=== PATIENT | female | born 2000 | race Two or more races ===

== ENCOUNTER 2020-09-24 13:27 | Emergency (ER) | payer OTHER ==
[~2020-09-24] VITALS: Ht 160 cm; Wt 56.7 kg
[2020-09-24 14:04] VITALS: BP 126/77
--- NOTE | 2020-09-24 14:23 | NUR ---
pt c/o severe pain after intercourse, states "burst of pain for 5 min". pt denies vomiting/cough/fever. pt took ibu before coming. cramping in low back. pt denies painful urination. hx: ovarian cyst (w/surgical removal). asthma. psh: tonsilectomy. pt states told her to not take nsaid after od. unsure of allergic rxn. LMP 08/19/20.
--- NOTE | 2020-09-24 14:45 | Emergency Room Report ---
History of Present Illness General Chief Complaint: Abdominal Pain Source: Patient Present Illness HPI 20-year-old female with PMHx of left ovarian cyst s/p laparoscopic surgery at [facility] in 2019 presents with left lower quadrant abdominal pain x onset 12 noon. Onset of pain was during sexual intercourse with her boyfriend. Denies vaginal bleeding, pelvic trauma, dysuria, hematuria, flank pain nausea, vomiting, diarrhea, chest pain, cough, shortness of breath. She is sexually monogamous with one male partner, and denies hx or concern for STI. She states this feels "similar to her previous ovarian problem", although she cannot remember what exactly was done at the time of the surgery. The patient's symptoms were gradual onset, severity was moderate, duration since 12 PM: Approximately 2.5 hours. LMP 08/19/2020 Quality: Cramping Patient denies anaphylactic allergy to NSAID. In fact, she took Advil prior to arriving. Past medical history: Left ovarian cyst, Asthma Past surgical history: Laparoscopic ovarian surgery 2019 [facility] [place], [place] Sx Smoking: Denies Alcohol use: Denies Drug use: Denies Review of systems: CONST: No fevers or chills, No night sweats PULMONARY: No productive cough, No shortness of breath CARDIAC: No chest pain, No palpitations GI: No vomiting, No diarrhea , No melena_or_BRBPR : No dysuria, No hematuria, No discharge NEURO: No new_focal_weakness_or_numbness, No confusion, No vision changes 14 point Review of Systems is otherwise negative except per HPI Physical Exam: GENERAL: Awake_alert_ nontoxic, no acute distress Spo2 98% on RA -normal EYES: Extraocular muscles are intact. Conjunctivae clear. Lids without swelling ENT: External nose and ear normal_in_appearance. Oropharynx clear. Head_atraumatic, Moist_oral_mucosa NECK: No JVD. No meningismus. No thyromegaly. Supple. Trachea midline RESP: Normal respiratory effort. Symmetric rise. No stridor. Nicky r_to_auscultation_No_rales_No_wheezes CARDIAC: Regular rate and regular rhytm. No_significant pedal edema. ABDOMEN: Soft. Nondistended. Nontender_No_rebound_or_guarding. No pulsatile mass. No CVA tenderness to palpation bilaterally. Negative Rovsing's. Negative psoas. Negative obturator. Negative Onofre MSK: Normal muscle tone, without rigidity. Extremities without asymmetric deformity or swelling. SKIN: Warm and dry. No visible cyanosis or pallor. No petechiae. NEUROLOGIC: Alert, oriented x3. Motor_and_sensation_grossly_intact. No truncal ataxia. Gait_normal Psych: Normal mood and affect, normal judgment and insight - COORDINATION OF CARE Case was discussed with: Patient Any labs and imaging that were ordered were interpreted as part of the medical decision making: Medical Decision Making/Plan: Differential diagnosis includes UTI, nephrolithiasis, appendicitis, cramping, ovarian cyst, ectopic , hemorrhagic ovarian cyst, threatened , fibroids, severe anemia, dysfunctional uterine bleeding, vaginal / uterine mass, among others. Doubt PID test is NEGATIVE ruling out ectopic , or threatened / inevitable . CBC, CMP, UA are grossly unremarkable. CT abd/pelvis shows dominant follicles / small cysts in the ovaries. Mild prominence of the bladder wall is nonspecific. Doubt infectious cystitis. US shows small ovarian cyst. Small physiologic fluid in the cul de sac. The patients presentation is not consistent with hemorrhagic ovarian cyst, and has no significant tenderness on exam. Doubt ovarian torsion or TOA. Suspect pain 2/2 cramping vs follicular cyst. Ovarian torsion precautions discussed. Patients hemoglobin is not severely low, vitals are hemodynamically stable, and no symptoms of severe anemia (near syncope, lightheadedness, severe fatigue), no indication for blood transfusion at this time. The patient appears stable for discharge home and follow with PMD in 2-3 days for reevaluation and further treatment. Recommend follow-up with [facility]. Supportive care. NSAIDs as needed pain. 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 COVID-19 Screening: Negative COVID-19 COVID-19 Testing Source: 2 weeks ago Patient History Last Menstrual Period: 08/19/20 Now: No Nursing Documentation-PMH Past Medical History: No History, Except For Hx Cardiac Problems: No Hx Hypertension: No Hx Pacemaker: No Hx Asthma: Yes Hx COPD: No Hx Diabetes: No Hx Cancer: No Hx Gastrointestinal Problems: Yes - ovarian cyst Hx Dialysis: No History Of Psychiatric Problem: No Hx Neurological Problems: No Hx Cerebrovascular Accident: No Hx Seizures: No Physical Exam Vital Signs Date Time Temp Pulse Resp B/P (MAP) Pulse Ox O2 Delivery O2 Flow Rate FiO2 09/24/20 14:04 99.0 86 18 126/77 (93) 98 Room Air Sp02 EP Interpretation: reviewed, normal Medical Decision Making Diagnostic Impression: Primary Impression: Abdominal pain Additional Impression: Left ovarian cyst CT/MRI/US Diagnostic Results CT/MRI/US Diagnostic Results : Impression CT Abdomen FINDINGS: Lung bases: Unremarkable. No mass. No consolidation. ABDOMEN: Liver: Unremarkable. Gallbladder and bile ducts: Unremarkable. No calcified stones. No ductal dilation. Pancreas: Unremarkable. No ductal dilation. Spleen: Unremarkable. No splenomegaly. Adrenals: Unremarkable. No mass. Kidneys and ureters: No hydronephrosis or stone. Stomach and bowel: Evaluation of the stomach is limited by underdistention. No mucosal thickening. PELVIS: Appendix: Normal appendix. Bladder: Mild prominence of the bladder wall is nonspecific. Please correlate with urinalysis if concerned for cystitis. No stones. Reproductive: Dominant follicles or small cysts in the ovaries. ABDOMEN and PELVIS: Intraperitoneal space: Small amount of free fluid in the pelvis may be physiologic. No free air. Bones/joints: No acute fracture. No dislocation. Soft tissues: Unremarkable. Vasculature: Unremarkable. No abdominal aortic aneurysm. Lymph nodes: Mildly prominent mesenteric lymph nodes are nonspecific but may be reactive. IMPRESSION: 1. Dominant follicles or small cysts in the ovaries. 2. Mild prominence of the bladder wall is nonspecific. Please correlate with urinalysis if concerned for cystitis. Radiologist: Leonid Sims M.D. Diagnostic POCUS Bedside Ultrasound Diagnostics: Comment US Pelvic w/Transvag FINDINGS: Transabdominal and transvaginal technique utilized. The uterus measures 7.9 x 4.9 x 3.6 cm. Myometrium is homogeneous. Endometrial stripe is 3 mm. Right ovary measures 3.6 x 3.2 cm. Left ovary measures 3.1 x 2.1 cm. There are bilateral ovarian cysts. Normal vascular flow seen bilaterally. A small amount of free fluid noted in the cul-de-sac. IMPRESSION: BILATERAL SIMPLE OVARIAN CYSTS. SMALL AMOUNT OF FREE FLUID IN THE CUL-DE-SAC. Dictated By: Stuart Hoyt MD Last Vital Signs Date Time Temp Pulse Resp B/P (MAP) Pulse Ox O2 Delivery O2 Flow Rate FiO2 09/24/20 14:04 99.0 86 18 126/77 (93) 98 Room Air Disposition: HOME, SELF-CARE Admit Decision Time: 18:00 Condition: Stable Scripts Acetaminophen* (TYLENOL EXTRA STRENGTH*) 500 Mg Tablet 500 MG ORAL Q8H PRN for Prn Headache/Temp > 101, #30 TAB 0 Refills Prov: Keily Sarmiento D.O. 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 Take analgesics for your pain. Follow-up with your [facility] for routine Pap smear and gynecological evaluation. Follow-up with your doctor sooner if your condition requires a more timely clinical reevaluation. Return to the emergency department immediately if you feel that your condition is worsening or if you have any new or concerning symptoms. Review your discharge instructions and take any prescriptions given as instruct ed. [facility] PROVIDES FREE OR LOW-COST HEALTH SERVICES TO PEOPLE WHO CAN SHOW PROOF THAT THEY LIVE IN [facility]. TO FIND MORE CLINICS PARTNERED WITH THE [facility] TO PROVIDE SERVICE, PLEASE CALL . Keily Sarmiento D.O. Sep 24, 2020 14:45
--- NOTE | 2020-09-24 14:53 | NUR ---
pt taken to US.
[2020-09-24 15:08] LABS: APPEARANCE,URINE CLEAR; BILIRUBIN, URINE NEGATIVE (NEGATIVE); COLOR,URINE PALE YELLOW; GLUCOSE, URINE (UA) NEGATIVE (NEGATIVE); KETONES,URINE NEGATIVE (NEGATIVE); LEUKOCYTE ESTERASE ,URINE NEGATIVE (NEGATIVE); NITRITE,URINE NEGATIVE (NEGATIVE); PH,URINE 7 (4.5-8.0); PROTEIN,URINE NEGATIVE (NEGATIVE); UROBILINOGEN,URINE NORMAL MG/DL (0.0-1.0)
--- NOTE | 2020-09-24 16:17 | NUR ---
1555: pt back from CT & US. IV placed, blood sent to lab. pt in bed. denies pain at this time. will continue to monitor.
[2020-09-24 16:22] LABS: BASOPHILS % (AUTO) 0.5 % (0.0-2.0); EOSINOPHILS % (AUTO) 2.6 % (0.0-3.0); HEMATOCRIT 45.9 % (37.0-47.0); HEMOGLOBIN 14.8 G/DL (12.0-16.0); LYMPHOCYTES % (AUTO) 23.8 % (20.0-45.0); MEAN CORPUSCULAR VOLUME 89 FL (80-99); MONOCYTES % (AUTO) 7.9 % (1.0-10.0); NEUTROPHILS % (AUTO) 65.1 % (45.0-75.0); PLATELET COUNT 196 K/UL (150-450); RED BLOOD COUNT 5.17 M/UL (4.20-5.40); RED CELL DISTRIBUTION WIDTH 13.2 % (11.6-14.8); WHITE BLOOD COUNT 6.7 K/UL (4.8-10.8)
[2020-09-24 16:39] LABS: ANION GAP 10 mmol/L (5-15); BLOOD UREA NITROGEN 9 mg/dL (7-18); CALCIUM 9.2 MG/DL (8.5-10.1); CARBON DIOXIDE 26 MMOL/L (21-32); CHLORIDE 106 MMOL/L (98-107); CREATININE 0.7 MG/DL (0.55-1.30); POTASSIUM 4.1 MMOL/L (3.5-5.1); SODIUM 142 MMOL/L (136-145)
[2020-09-24 16:45] LABS: ALANINE AMINOTRANSFERASE 30 U/L (12-78); ALBUMIN 4.2 G/DL (3.4-5.0); ALBUMIN/GLOBULIN RATIO 1.4 (1.0-2.7); ALKALINE PHOSPHATASE 76 U/L (46-116); ASPARTATE AMINO TRANSFERASE 23 U/L (15-37); BILIRUBIN,TOTAL 0.6 MG/DL (0.2-1.0)
--- NOTE | 2020-09-24 17:12 | Diagnostic Imaging Report ---
EXAM: CT Abdomen and Pelvis Without Intravenous Contrast CLINICAL HISTORY: PAIN TECHNIQUE: Axial computed tomography images of the abdomen and pelvis without intravenous contrast. CTDI is 3.9 mGy and DLP is 184.7 mGy-cm. One or more of the following dose reduction techniques were used: automated exposure control, adjustment of the mA and/or kV according to patient size, use of iterative reconstruction technique. COMPARISON: None FINDINGS: Lung bases: Unremarkable. No mass. No consolidation. ABDOMEN: Liver: Unremarkable. Gallbladder and bile ducts: Unremarkable. No calcified stones. No ductal dilation. Pancreas: Unremarkable. No ductal dilation. Spleen: Unremarkable. No splenomegaly. Adrenals: Unremarkable. No mass. Kidneys and ureters: No hydronephrosis or stone. Stomach and bowel: Evaluation of the stomach is limited by underdistention. No mucosal thickening. PELVIS: Appendix: Normal appendix. Bladder: Mild prominence of the bladder wall is nonspecific. Please correlate with urinalysis if concerned for cystitis. No stones. Reproductive: Dominant follicles or small cysts in the ovaries. ABDOMEN and PELVIS: Intraperitoneal space: Small amount of free fluid in the pelvis may be physiologic. No free air. Bones/joints: No acute fracture. No dislocation. Soft tissues: Unremarkable. Vasculature: Unremarkable. No abdominal aortic aneurysm. Lymph nodes: Mildly prominent mesenteric lymph nodes are nonspecific but may be reactive. IMPRESSION: 1. Dominant follicles or small cysts in the ovaries. 2. Mild prominence of the bladder wall is nonspecific. Please correlate with urinalysis if concerned for cystitis.
[2020-09-24] MEDS ORDERED: TYLENOL EXTRA500 MG ORAL (17:22)
--- NOTE | 2020-09-24 17:39 | Diagnostic Imaging Report ---
EXAM: US Pelvic w/Transvag CLINICAL HISTORY: Pelvic pain. COMPARISON: None TECHNIQUE: Ultrasound examination of the pelvis includes grayscale images, and color and spectral doppler analysis. FINDINGS: Transabdominal and transvaginal technique utilized. The uterus measures 7.9 x 4.9 x 3.6 cm. Myometrium is homogeneous. Endometrial stripe is 3 mm. Right ovary measures 3.6 x 3.2 cm. Left ovary measures 3.1 x 2.1 cm. There are bilateral ovarian cysts. Normal vascular flow seen bilaterally. A small amount of free fluid noted in the cul-de-sac. IMPRESSION: BILATERAL SIMPLE OVARIAN CYSTS. SMALL AMOUNT OF FREE FLUID IN THE CUL-DE-SAC.
[2020-09-24] MEDS ORDERED: Acetaminophen 500mg (ES) tab ORAL ONE (17:45)
== END 2020-09-24 17:48 | disposition home or self-care (01) ==
LOC: EMR 14:49
DX: R10.32 Left lower quadrant pain (principal); N83.202 Unspecified ovarian cyst, left side; Z88.6 Allergy status to analgesic agent
CPT/HCPCS: 36415; 74176; 76830; 76856; 80053; 81003; 81025; 83690; 84702; 85025; 86850; 86900; 86901; 99284